=== PATIENT | female | born 1990 | race American Indian/Alaskan Native ===

== ENCOUNTER 2017-01-07 15:56 | Emergency (ER) | payer MEDICAID ==
[2017-01-07 19:13] LABS: Anion Gap 16 mmol/L; BUN/Creatinine Ratio 17.14; Blood Urea Nitrogen 12 mg/dL (7-17); Calcium 9.1 mg/dL (8.4-10.2); Carbon Dioxide 25 mmol/L (22-30); Chloride 98.7 mmol/L (98-107); Glucose 97 mg/dL (65-100); Potassium 4.3 mmol/L (3.6-5.0); Sodium 135 mmol/L (137-145)
[2017-01-07 19:16] LABS: Basophils % (Auto) 0.5 % (0.0-1.8); Eosinophils % (Auto) 0.5 % (0.0-4.3); Hematocrit 36.1 % (30.3-42.9); Hemoglobin 11.5 gm/dl (10.1-14.3); Mean Corpuscular HGB Conc 32 % (30-34); Mean Corpuscular Volume 78 fl (79-97); Platelet Count 209 K/mm3 (140-440); Red Blood Count 4.63 M/mm3 (3.65-5.03); Red Cell Distribution Width 15.4 % (13.2-15.2); White Blood Count 7.5 K/mm3 (4.5-11.0)
[2017-01-07 19:28] LABS: Bilirubin,Urine NEG (Negative); Blood,Urine SM (Negative); Ketones,Urine NEG (Negative); Leukocyte Esterase,Urine NEG (Negative); Nitrite,Urine NEG (Negative); Protein,Urine <15 mg/dL mg/dL (Negative)
[2017-01-07 19:40] LABS: Mean Corpuscular Hemoglobin 25 pg (28-32)
--- NOTE | 2017-01-08 02:01 | Emergency Department Report ---
ED Seizure HPI - General Chief Complaint: Seizure Stated Complaint: SEIZURES/HEARING LOSS Time Seen by Provider: 01/08/17 01:09 Source: patient Mode of arrival: Ambulatory Limitations: No Limitations - History of Present Illness Initial Comments: Patient indicates that her sister told her this morning that she had a seizure while she was laying in the lazy boy last night. She described as full body movement the last several minutes. Patient has no recollection of this. Patient states that again this morning she had another episode where she was told by her 4-year-old daughter that she had a seizure. This time the patient was lying on the ground and wasn't aware of how she arrived on the ground. She states she feels at her baseline. She denies feeling tired or fatigued in general. She reports one other prior episode in 2013 when she was of having a questionable seizure. At that time the decision was made not to put her on any medications due to the . Denies any fevers states that she is eating and drinking well denies any anorexic issues. MD Complaint: possible seizure Onset/Timin -: days(s) Description of Episode: loss of consciousness -: minutes(s) (2) Witnessed:: Yes Trauma: No Seizure History: other (once prior) Place: home Possible Precipitating Event: none Associated Symptoms: denies other symptoms Treatments Prior to Arrival: none - Related Data Allergies Allergy/AdvReac Type Severity Reaction Status Date / Time No Known Allergies Allergy Verified 01/07/17 17:24 ED Review of Systems ROS: Stated complaint: SEIZURES/HEARING LOSS Other details as noted in HPI Constitutional: denies: chills, fever Eyes: denies: eye pain, eye discharge, vision change ENT: denies: ear pain, throat pain Respiratory: denies: cough, shortness of breath, wheezing Cardiovascular: denies: chest pain, palpitations Endocrine: no symptoms reported Gastrointestinal: denies: abdominal pain, nausea, diarrhea Genitourinary: denies: urgency, dysuria, discharge Musculoskeletal: denies: back pain, joint swelling, arthralgia Skin: denies: rash, lesions Neurological: denies: headache, weakness, paresthesias Psychiatric: denies: anxiety, depression Hematological/Lymphatic: denies: easy bleeding, easy bruising ED Past Medical Hx - Past Medical History Hx Seizures: Yes Additional medical history: ANEMIA - Surgical History Past Surgical History?: No - Social History Smoking Status: Never Smoker ED Physical Exam - General Limitations: No Limitations General appearance: alert, in no apparent distress - Head Head exam: Present: atraumatic, normocephalic - Eye Eye exam: Present: normal appearance - ENT ENT exam: Present: mucous membranes moist - Neck Neck exam: Present: normal inspection - Respiratory Respiratory exam: Present: normal lung sounds bilaterally. Absent: respiratory distress - Cardiovascular Cardiovascular Exam: Present: regular rate, normal rhythm. Absent: systolic murmur, diastolic murmur, rubs, gallop - GI/Abdominal GI/Abdominal exam: Present: soft, normal bowel sounds - Extremities Exam Extremities exam: Present: normal inspection - Back Exam Back exam: Present: normal inspection - Neurological Exam Neurological exam: Present: alert, oriented X3 - Psychiatric Psychiatric exam: Present: normal affect, normal mood - Skin Skin exam: Present: warm, dry, intact, normal color. Absent: rash ED Course Vital Signs 01/07/17 17:25 Temperature 98.5 F Pulse Rate 74 Respiratory 16 Rate Blood Pressure 115/82 O2 Sat by Pulse 99 Oximetry - Reevaluation(s) Reevaluation #1: 01/08/17 01:57 Normal sinus rhythm at 75 bpm with normal IA and QRS normal axis is noted no acute ST or T-wave abnormalities. Normal ECG. Reevaluation #2: 01/08/17 02:06 Patient is very pleasant and appropriate for me. I does have a hard time reviewing the idea that she would have a new onset seizure in front of her sister and her sister would not panicked and called 911 or rales patient did tell her she should go into the hospital. Likewise the seizure this morning was witnessed by the patient's 4-year-old daughter. Even if she did have seizure disorder really are not any precipitating events that would've lowered her seizure threshold yesterday. During on the side of caution labs were done and CT was done and were unremarkable. I will have the patient follow up with the neurologist for further consideration. Reevaluation #3: 01/08/17 02:07 Patient does have history of syncope as well I did obtain ECG demonstrating no ectopy she is intact neurologically here. Safe For home ED Medical Decision Making - Lab Data Result diagrams: 01/07/17 18:37 01/07/17 18:37 Critical care attestation.: If time is entered above; I have spent that time in minutes in the direct care of this critically ill patient, excluding procedure time. ED Disposition Clinical Impression: Seizure Disposition: DISCHARGED TO HOME OR SELFCARE Is pt being admited?: No Does the pt Need Aspirin: No Condition: Stable Instructions: New-Onset Seizure in Adults (ED) Additional Instructions: No driving until you have further evaluation through the neurologist and are clear to be able to drive. Referrals: PRICE FUNES MD [Staff Physician] - 3-5 Days
--- NOTE | 2017-01-08 02:01 | Cat Scan Report ---
FINAL REPORT PROCEDURE: CT HEAD/BRAIN WO CON TECHNIQUE: Computerized tomography of the head was performed without contrast material. HISTORY: seizure COMPARISON: No prior studies are available for comparison. FINDINGS: Skull and scalp: Normal. Paranasal sinuses: Normal. Ventricles and subarachnoid spaces: Normal. Cerebrum: No evidence of hemorrhage, acute infarction or mass . Cerebellum and brainstem: No evidence of hemorrhage, acute infarction or mass. Vasculature: Normal. Comments: None. IMPRESSION: Normal Examination
[2017-01-08 02:20] VITALS: BP 110/60
== END 2017-01-08 02:19 | disposition home or self-care (01) ==
LOC: ED 15:56
DX: R56.9 Unspecified convulsions (principal); R55 Syncope and collapse; Z86.2 Personal history of diseases of the blood and blood-forming organs and certain disorders involving the immune mechanism
CPT/HCPCS: 36415; 70450; 80048; 81001; 81025; 85025; 93005; 93010

== ENCOUNTER 2017-11-29 09:48 | Emergency (ER) | payer MEDICAID ==
[2017-11-29 11:16] VITALS: BP 139/85
[2017-11-29] MEDS ORDERED: MOTRIN PO ONE (11:52)
--- NOTE | 2017-11-29 11:52 | Emergency Department Report ---
ED Extremity Problem HPI - General Chief complaint: Extremity Injury, Upper Stated complaint: R INDEX FINGER INJURY Time Seen by Provider: 11/29/17 11:46 Source: patient Mode of arrival: Ambulatory Limitations: No Limitations - History of Present Illness Initial comments: PT states she thinks she fractured her R index finger last night. PT states she accidentally struck it across dresser. PT states her finger became swollen and painful. 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 PT Was sent to the ED because she could not bend her R index finger. PT has not taken anything for her symptoms. PT's lmp 11-27-17 MD Complaint: joint paint -: Sudden Location: right, upper extremity, other (index finger) History of Same: No Severity scale (0 -10): 3 (without movement) Consistency: constant Improves with: rest Worsens with: palpation Associated Symptoms: denies other symptoms - Related Data Previous Rx's Medication Instructions Recorded Last Taken Type Ibuprofen [Motrin] 600 mg PO Q8H PRN #15 tablet 11/29/17 Unknown Rx Allergies Allergy/AdvReac Type Severity Reaction Status Date / Time No Known Allergies Allergy Verified 11/29/17 11:13 ED Review of Systems ROS: Stated complaint: R INDEX FINGER INJURY Other details as noted in HPI Comment: All other systems reviewed and negative Constitutional: denies: chills, fever Gastrointestinal: denies: abdominal pain, nausea, vomiting Musculoskeletal: joint swelling, arthralgia Skin: other (bruising, no open wounds ) ED Past Medical Hx - Past Medical History Previous Medical History?: No Hx Seizures: Yes Additional medical history: ANEMIA - Surgical History Past Surgical History?: No - Social History Smoking Status: Never Smoker - Medications Home Medications: Home Medications Medication Instructions Recorded Confirmed Last Taken Type Ibuprofen [Motrin] 600 mg PO Q8H PRN #15 tablet 11/29/17 Unknown Rx ED Physical Exam - General Limitations: No Limitations General appearance: alert, in no apparent distress - Head Head exam: Present: atraumatic, normocephalic, normal inspection - Eye Eye exam: Present: normal appearance, EOMI. Absent: conjunctival injection - ENT ENT exam: Present: normal exam, mucous membranes moist, normal external ear exam - Neck Neck exam: Present: normal inspection, full ROM - Respiratory Respiratory exam: Present: normal lung sounds bilaterally. Absent: respiratory distress, chest wall tenderness - Cardiovascular Cardiovascular Exam: Present: regular rate, normal rhythm, normal heart sounds - GI/Abdominal GI/Abdominal exam: Present: soft. Absent: tenderness - Extremities Exam Extremities exam: Present: tenderness. Absent: full ROM - Expanded Upper Extremity Exam Left General: Present: normal inspection Right Forearm Wrist exam: Present: normal inspection, full ROM. Absent: tenderness Hand Wrist exam: Present: tenderness, swelling, ecchymosis, other (tenderness and bruising to the MCP joint of the R index finger. cap refill wnl. +2 radial pulse ). Absent: erythema, amputation, nail avulsion, subungual hematoma Vascular: Absent: vascular compromise - Back Exam Back exam: Present: normal inspection, full ROM - Neurological Exam Neurological exam: Present: alert, oriented X3, normal gait - Psychiatric Psychiatric exam: Present: normal affect, normal mood - Skin Skin exam: Present: warm, dry, intact ED Course Vital Signs 11/29/17 11:13 Temperature 98 F Pulse Rate 70 Respiratory 18 Rate Blood Pressure 139/85 O2 Sat by Pulse 100 Oximetry - Reevaluation(s) Reevaluation #1: 11/29/17 12:09 PT aware of XR result and plan of care. PT Aware if her pain persists, she may need repeat XRs in 7-10 days. PT has no questions at this time. Reevaluation #2: 11/29/17 12:45 Nursing staff applied splint. PT NVI. - Pulse Oximetry Interpretation Digit-Finger Initial Pulse Oximetry Readin Actions Taken: none ED Medical Decision Making - Radiology Data Radiology results: report reviewed XR hand - NAP - Differential Diagnosis contusion, fx, sprain Critical Care Time: No Critical care attestation.: If time is entered above; I have spent that time in minutes in the direct care of this critically ill patient, excluding procedure time. ED Disposition Clinical Impression: Contusion of index finger Qualifiers: Encounter type: initial encounter Damage to nail status: without damage Laterality: right Qualified Code(s): S60.021A - Contusion of right index finger without damage to nail, initial encounter Disposition: DC- TO HOME OR SELFCARE Is pt being admited?: No Does the pt Need Aspirin: No Condition: Stable Instructions: Jammed Finger (ED), Finger Sprain (ED), RICE Therapy (ED) Additional Instructions: Follow up with PCP in a week Have your BP rechecked on follow up If your pain persists, you may need repeat XRs in 7-10 days Prescriptions: Ibuprofen [Motrin] 600 mg PO Q8H PRN #15 tablet PRN Reason: Pain Referrals: LIZA DOSS MD [Staff Physician] - 3-5 Days MARLEY KENDALL MD [Staff Physician] - 3-5 Days Forms: Work/School Release Form(ED) Time of Disposition: 12:18
--- NOTE | 2017-11-29 11:54 | XRay Report ---
RIGHT HAND, 3 views: History: Injury to right index finger, swelling The bony architecture is intact. Bony alignment is normal. No soft tissue abnormalities are seen. The joint spaces appear preserved. IMPRESSION: Normal right hand.
== END 2017-11-29 13:12 | disposition home or self-care (01) ==
LOC: ED 09:48
DX: S60.021A Contusion of right index finger without damage to nail, initial encounter (principal); D64.9 Anemia, unspecified; R56.9 Unspecified convulsions; W22.8XXA Striking against or struck by other objects, initial encounter; Y93.89 Activity, other specified; Y92.89 Other specified places as the place of occurrence of the external cause; Y99.8 Other external cause status